=== PATIENT | male | born 1960 | race Caucasian/White ===

== ENCOUNTER 2017-03-20 12:46 | Emergency (ER) | payer MEDICAID ==
[~2017-03-20] VITALS: Wt 86.0 kg
[~2017-03-20 12:46] MED LIST: ADV25050 INHALATION; ALBU8.5H3 INH; PRED20TA PO
[2017-03-20] MEDS ORDERED: IPRATROPIUM (NEB) 0.5 MG/2.5 ML AMP INH STA (13:24)
[2017-03-20] MEDS ORDERED: METHYLPREDNISOLONE 125 MG INJ IV STA (13:24)
[2017-03-20] MEDS ORDERED: ALBUTEROL 0.083% (NEB) 2.5 MG/3 ML AMP INH STA (13:24)
--- NOTE | 2017-03-20 13:48 | ERD ---
ER Documentation Chief Complaint Chief Complaint ON AND OFF SOB, SMOKER, NO PAIN REPORTED HPI This is a 56-year-old male with no past medical history that presents to the emergency department complaining of intermittent shortness of breath over the past year the patient indicates that he smokes tobacco on a daily basis and has smoked for over 40 years. He has been diagnosed with bronchitis in the past and attempted to use an inhaler prior to arrival but stated the inhaler had . The patient states his reasoning for coming to the emergency department today as the difficulty breathing progressively worsened this morning after he smoked heroin. He denies any chest pain or pressure that radiates to the neck arm back or jaw. He denies any recent travel or prolonged immobilization. He denies any swelling of his lower extremities. He states the shortness of breath is more prominent on exertion and he denies any shortness of breath at rest and no paroxysmal nocturnal dyspnea or orthopnea. The patient also indicates he has very poor oral dentition and complains of pain over the right lower molar that has been present for several months. He is scheduled to see a dentist but is requesting a prescription for antibiotics. He denies any difficulty in swallowing. He has had no fevers or shaking or chills. He states that the pain over the tooth is exacerbated whenever he eats hot or cold substances ROS All systems reviewed and are negative except as per history of present illness. Medications Home Meds Active Scripts Amoxicillin* (Amoxicillin*) 500 Mg Cap, 500 MG PO BID for 7 Days, CAP Prov:LUCIO MASSEY 03/20/17 Prednisone* (Prednisone*) 20 Mg Tab, 40 MG PO DAILY for 7 Days, TAB Take 40mg dailyx3 days take 20mg dailyx3 datys take 10mg dailyx3 days STOP Prov:MARGARITA JO V. PUBLIC AFFAIRS MANAGER 09/03/15 Salmeterol Xinaf/Fluticasone* (Advair*) 250-50 Diskus Inhaler, 1 INH INHALATION BID, #1 INHALER Prov:MARGARITA JO V. PUBLIC AFFAIRS MANAGER 09/03/15 Albuterol Sulfate* (Proair HFA*) 8.5 Gm Hfa.aer.ad, 2 PUFF INH Q4 for shortness of breath, #1 INHALER Prov:MARGARITA JO V. PUBLIC AFFAIRS MANAGER 09/03/15 Allergies Allergies: Coded Allergies: No Known Allergy (Unverified , 09/01/15) PMhx/Soc History of Surgery: Yes (RIGHT CAROTID ENDARTERECTOMY, HEART CATH) Anesthesia Reaction: No Hx Neurological Disorder: No Hx Respiratory Disorders: Yes (COPD) Hx Cardiac Disorders: Yes (CAD, CHF, HTN, MITRAL VALVE REGURGITATION) Hx Psychiatric Problems: No Hx Miscellaneous Medical Probl: No Hx Alcohol Use: Yes Hx Substance Use: No Hx Tobacco Use: Yes Physical Exam Vitals Vital Signs Date Time Temp Pulse Resp B/P Pulse Ox O2 Delivery O2 Flow Rate FiO2 03/20/17 13:59 98 19 94 21 03/20/17 12:48 97.7 98 19 128/73 94 Physical Exam Constitutional:Well-developed. Well-nourished. HEENT:Normocephalic. Atraumatic.Pupils were equal round reactive to light. Moist mucous membranes.No tonsillar exudates. Very poor oral dentition with gingival mucosa and swelling over the right lower molar region and tenderness with percussion of the lower right molars. No avulsions or fractures of the teeth. Neck: No nuchal rigidity. No lymphadenopathy. No posterior cervical spine tenderness or step-offs. Respiratory: Not using accessory muscles of respiration.Lungs were clear to auscultation bilaterally. No rhonchi. No rales. There is wheezing on end auscultation bilaterally. Cardiovascular: Regular rate regular rhythm.No murmurs. No rubs were appreciated.S1, S2 normal. Distal pulses are palpable 2+ bilaterally. Muscle skeletal: Full range of motion of both the upper and lower extremities bilaterally.Normal muscle tone.No assymetrical calf tenderness or swelling. Skin: No petechia, no purpura. No lesions on the palms or the soles of the feet. No maculopapular rash. NEURO: Patient was alert, awake, orientated x3.No facial droop. Gait observed and normal with no ataxia.Speech had regular rate and rhythm. No focal neurological deficits. Result Diagram: 03/20/17 1351 03/20/17 1351 Results 24 hrs Laboratory Tests Test 03/20/17 13:51 White Blood Count 8.710^3/ul Red Blood Count 5.1810^6/ul Hemoglobin 15.1g/dl Hematocrit 46.2% Mean Corpuscular Volume 89.2fl Mean Corpuscular Hemoglobin 29.2pg Mean Corpuscular Hemoglobin Concent 32.7g/dl Red Cell Distribution Width 13.0% Platelet Count 51836^3/UL Mean Platelet Volume 9.9fl Neutrophils % 58.1% Lymphocytes % 30.7% Monocytes % 9.7% Eosinophils % 1.1% Basophils % 0.2% Nucleated Red Blood Cells % 0.0/100WBC Neutrophils # 5.110^3/ul Lymphocytes # 2.710^3/ul Monocytes # 0.910^3/ul Eosinophils # 0.110^3/ul Basophils # 0.010^3/ul Nucleated Red Blood Cells # 0.010^3/ul Sodium Level 140mmol/L Potassium Level 4.7mmol/L Chloride Level 100mmol/L Carbon Dioxide Level 33mmol/L Anion Gap 12 Blood Urea Nitrogen 14mg/dl Creatinine 0.78mg/dl Glucose Level 117mg/dl Calcium Level 9.4mg/dl Total Bilirubin 0.4mg/dl Direct Bilirubin 0.00mg/dl Indirect Bilirubin 0.4mg/dl Aspartate Amino Transf (AST/SGOT) 34IU/L Alanine Aminotransferase (ALT/SGPT) 56IU/L Alkaline Phosphatase 61IU/L Creatine Kinase 62IU/L Creatine Kinase Index 2.3 Creatinine Kinase MB (Mass) 1.42ng/ml Troponin I < 0.012ng/ml B-Type Natriuretic Peptide 1900PG/ML Total Protein 7.3g/dl Albumin 4.1g/dl Globulin 3.20g/dl Albumin/Globulin Ratio 1.28 Current Medications Medications (Trade) Dose Ordered Sig/Priya Route PRN Reason Start Time Stop Time Status Last Admin Dose Admin Albuterol (Proventil 0.083% (Neb)) 5 mg ONCE STAT INH 03/20/17 13:24 03/20/17 13:27 DC 03/20/17 13:57 Ipratropium [place] (Atrovent 0.02% (Neb)) 0.5 mg ONCE STAT INH 03/20/17 13:24 03/20/17 13:27 DC 03/20/17 13:57 Methylprednisolone Sodium Succinate (Solu-Medrol) 125 mg ONCE STAT IV 03/20/17 13:24 03/20/17 13:27 DC 03/20/17 13:59 Albuterol (Proventil 0.083% (Neb)) 5 mg ONCE STAT NEB 03/20/17 16:38 03/20/17 16:48 DC Ipratropium [place] (Atrovent 0.02% (Neb)) 0.5 mg ONCE STAT NEB 03/20/17 16:38 03/20/17 16:48 DC Procedures/MDM The patient presented to the emergency department with shortness of breath. My differential diagnosis included but was not limited to upper airway obstruction , CHF, pulmonary embolism, cardiac ischemia, pneumonia, pneumothorax, anemia, drug overdose, pulmonary edema, COPD or asthma. One view chest radiograph ordered reviewed by myself showed no cardiomegaly no infiltrates no pneumothorax. I did feel the patient's symptoms could be a result of emphysema versus bronchitis. The patient received nebulizer treatments of albuterol Atrovent and was given 125 mg of Solu-Medrol in the emergency department. The patient had no risk factors for pulmonary embolism therefore did not obtain a CT scan of the patient's chest. She had no leukocytosis. There is no evidence of atypical myocardial ischemia. The patient has not an elevated BNP with no signs of pulmonary vascular congestion on chest radiograph. The patient felt comfortable being discharged home will follow up on an outpatient basis with a kiss mixer. I did treat the patient for acute bronchitis and he was also given a prescription of amoxicillin for suspected dental abscess. The patient was discharged home in fair condition. They were instructed to return to the emergency department at any time if there was any worsening of their condition. The patient stated they would follow up with their PCP in the next 24-48 hours to initiate a suitable medication regimen under the care of their PCP as well as to allow their PCP to monitor any drug reactions. The patient was discharged home with prescriptions after they gave informed consent to the new medication. They were also fully informed by myself on the adverse effects and adverse drug interactions in order to provide adequate safeguards to prevent possible adverse reactions to medications. Departure Diagnosis: Primary Impression: Bronchitis Additional Impression: Dental abscess Condition: Fair SHILPARICH KNAPPA Mar 20, 2017 13:46
--- NOTE | 2017-03-20 13:52 | RADRPT ---
PROCEDURE: XR Chest. CLINICAL INDICATION: Shortness of breath TECHNIQUE: Single frontal radiograph of the chest. COMPARISON: CR CHEST 09/01/2015; CR CHEST 10/12/2014; CR CHEST 08/24/2013 FINDINGS: Minimal chronic opacity in the left lung base likely representing chronic atelectasis. No new acute appearing air space infiltrates. No pleural effusion. No pneumothorax. The cardiomediastinal silhouette is unremarkable. No acute osseous abnormalities. IMPRESSION: Minimal chronic opacity in the left lung base likely representing chronic atelectasis. No new acute appearing air space infiltrates. RPTAT: AADD .Crow Gil MD, MD Date Time Electronically viewed and signed by .Crow Gil MD, MD on 03/20/2017 13:52 .B/
[2017-03-20 14:08] LABS: BASOPHILS % 0.2 % (0.0-2.0); EOSINOPHILS # 0.1 10^3/ul (0.0-0.5); EOSINOPHILS % 1.1 % (0.0-7.0); HEMATOCRIT 46.2 % (42.0-52.0); HEMOGLOBIN 15.1 g/dl (14.0-18.0); LYMPHOCYTES # 2.7 10^3/ul (0.8-2.9); LYMPHOCYTES % 30.7 % (15.0-51.0); MEAN CORPUSCULAR HEMOGLOBIN 29.2 pg (29.0-33.0); MEAN CORPUSCULAR HGB CONC 32.7 g/dl (32.0-37.0); MEAN CORPUSCULAR VOLUME 89.2 fl (82.0-101.0); MEAN PLATELET VOLUME 9.9 fl (7.4-10.4); MONOCYTE # 0.9 10^3/ul (0.3-0.9); MONOCYTES % 9.7 % (0.0-11.0); NEUTROPHIL # 5.1 10^3/ul (1.6-7.5); NEUTROPHILS % 58.1 % (39.0-77.0); PLATELET COUNT 174 10^3/UL (140-415); RED BLOOD COUNT 5.18 10^6/ul (4.70-6.10); WHITE BLOOD COUNT 8.7 10^3/ul (4.8-10.8)
[2017-03-20 14:28] LABS: ALANINE AMINOTRANSFERASE 56 IU/L (13-69); ALBUMIN 4.1 g/dl (3.3-4.9); ALBUMIN/GLOBULIN RATIO 1.28; ALKALINE PHOSPHATASE 61 IU/L (42-121); ANION GAP 12 (8-16); ASPARTATE AMINO TRANSFERASE 34 IU/L (15-46); BILIRUBIN,INDIRECT 0.4 mg/dl (0-1.1); BILIRUBIN,TOTAL 0.4 mg/dl (0.2-1.3); BLOOD UREA NITROGEN 14 mg/dl (7-20); CALCIUM 9.4 mg/dl (8.4-10.2); CARBON DIOXIDE 33 mmol/L (21-31); CHLORIDE 100 mmol/L (97-110); CREATINE KINASE 62 IU/L (23-200); CREATININE 0.78 mg/dl (0.61-1.24); GLUCOSE 117 mg/dl (70-220); POTASSIUM 4.7 mmol/L (3.5-5.1); SODIUM 140 mmol/L (135-144); TOTAL PROTEIN 7.3 g/dl (6.1-8.1)
[2017-03-20 14:41] LABS: B-TYPE NATRIURETIC PEPTIDE 1900 PG/ML (0-125)
[2017-03-20 14:45] LABS: CK-MB 1.42 ng/ml (0.0-2.4); TROPONIN-I < 0.012 ng/ml (0.00-0.12)
[2017-03-20] MEDS ORDERED: ALBUTEROL 0.083% (NEB) 2.5 MG/3 ML AMP NEB STA (16:38)
[2017-03-20] MEDS ORDERED: IPRATROPIUM (NEB) 0.5 MG/2.5 ML AMP NEB STA (16:38)
[2017-03-20] MEDS ORDERED: AMOX500C2 PO (16:53)
[2017-03-20] MEDS ORDERED: PRED20TA PO (17:22)
[2017-03-20] MEDS ORDERED: ALBU8.5H3 INH (17:22)
== END 2017-03-20 17:40 | disposition home or self-care (01) ==
LOC: FTE 12:46
DX: J20.9 Acute bronchitis, unspecified (principal); K04.7 Periapical abscess without sinus; J44.9 Chronic obstructive pulmonary disease, unspecified; I25.10 Atherosclerotic heart disease of native coronary artery without angina pectoris; I50.9 Heart failure, unspecified; I10 Essential (primary) hypertension; Z87.891 Personal history of nicotine dependence
CPT/HCPCS: 71010; 80053; 82550; 82553; 83880; 84484; 85025; 93005; 94640; 94664; 96374; J2930; Z7502; Z7610

== ENCOUNTER 2017-04-23 00:50 | Emergency (ER) | END 2017-04-23 03:53 | disposition home or self-care (01) ==

== ENCOUNTER 2017-05-11 05:38 | Emergency (ER) | END 2017-05-11 10:06 | disposition left against medical advice (07) ==

== ENCOUNTER 2017-07-05 17:07 | Emergency (ER) | END 2017-07-05 22:10 | disposition home or self-care (01) ==

== ENCOUNTER 2017-12-23 09:42 | Emergency (ER) | END 2017-12-23 10:44 | disposition home or self-care (01) ==

== ENCOUNTER → 2018-10-02 | Outpatient (CLI) | payer OTHER ==
[~2018-10-02] MED LIST changes: -ADV25050 INHALATION; -ALBU8.5H3 INH; +ALBU8.5H8 INH; +AMOX1TAB10 PO; +BEN25 PO; +CARV3.1260 PO; +CEPH500C PO; +CPR3OO3.5 LEFT EYE; +FURO-110 PO; +HYDR25TA6 PO; +LISI-471 PO; +SPIR25TA PO; +SULF1TAB31 PO
== END | disposition home or self-care (01) ==
LOC: PUL 09:19
PROVIDERS: ATTEND Internal Medicine Pulmonary Disease
DX: R06.02 Shortness of breath (principal)
CPT/HCPCS: 36600; 82803

== ENCOUNTER 2018-10-12 09:32 | Emergency (ER) | payer OTHER ==
[~2018-10-12] VITALS: Ht 162.6 cm; Wt 84.8 kg
[2018-10-12 09:36] VITALS: BP 138/84; PULSE 94; RESP 14; Ht 162.6 cm; Wt 84.8 kg
--- NOTE | 2018-10-12 10:26 | ERD ---
ER Documentation Chief Complaint Chief Complaint PT with L eye swelling X 3 days. HPI Patient is a 58-year-old male with past medical history of COPD, who presents to the ER for concerns of left eye swelling x3 days. Patient states initially is upper eyelid was only swollen however he is noticed that his lower eyelid is now swelling as well. Patient states it was itchy yesterday however he has no itching today. Patient reports pain only when touching the affected area. Patient has no fevers or chills. Patient states he was outside and is not sure if he was bit by an unknown insect. Patient denies any blurry vision, pain with eye movement, tearing, discharge or bleeding. ROS All systems reviewed and are negative except as per history of present illness. Medications Home Meds Active Scripts Diphenhydramine Hcl* (Benadryl*) 25 Mg Cap, 25 MG PO Q6, #30 CAP Prov:LILLY WHITE PA-C 10/12/18 Amoxicillin/Potassium Clav (Amox-Clav 875-125 mg Tablet) 875-125 mg Tab, 1 TAB PO BID for 10 Days, #20 TAB Prov:LILLY WHITE PA-C 10/12/18 Sulfamethoxazole/Trimethoprim* (Bactrim Ds* Tablet) 1 Each Tablet, 1 TAB PO BID, #10 TAB Prov:LILLY WHITE PA-C 10/12/18 Cephalexin* (Cephalexin*) 500 Mg Capsule, 500 MG PO Q6 for 7 Days, #28 CAP Prov:BRIAN ROONEY MD 12/23/17 Ciprofloxacin Opht* (Ciloxan*) 0.3%-3.5 Opht Oint, 1 APPLIC LEFT EYE TID for 7 Days, EA Prov:BRIAN ROONEY MD 12/23/17 Prednisone* (Prednisone*) 20 Mg Tab, 40 MG PO DAILY for 4 Days, TAB Prov:TAMIKO SANCHEZ MD 07/05/17 Albuterol Sulfate* (Proair HFA*) 8.5 Gm Hfa.aer.ad, 2 PUFF INH Q4 for WHEEZING, #1 INHALER Prov:TAMIKO SANCHEZ MD 07/05/17 Furosemide* (Lasix*) 20 Mg Tablet, 20 MG PO DAILY for 7 Days, #7 TAB Prov:TAMIKO SANCHEZ MD 07/05/17 Reported Medications Spironolactone* (Aldactone*) 25 Mg Tablet, 25 MG PO DAILY, #30 TAB 07/05/17 Carvedilol* (Carvedilol*) 3.125 Mg Tablet, 3.125 MG PO BID, #60 TAB 07/05/17 Hydrochlorothiazide* (Hydrochlorothiazide*) 25 Mg Tab, 25 MG PO DAILY, #30 TAB 07/05/17 Lisinopril* (Lisinopril*) 20 Mg Tablet, 20 MG PO DAILY, #30 TAB 07/05/17 Allergies Allergies: Coded Allergies: No Known Allergy (Unverified , 07/05/17) PMhx/Soc History of Surgery: No Anesthesia Reaction: No Hx Neurological Disorder: No Hx Respiratory Disorders: Yes (copd) Hx Cardiac Disorders: Yes (chf) Hx Psychiatric Problems: No Hx Miscellaneous Medical Probl: No Hx Alcohol Use: No Hx Substance Use: No Hx Tobacco Use: No FmHx Family History: No diabetes Physical Exam Vitals Vital Signs Date Temp Pulse Resp B/P (MAP) Pulse Ox O2 O2 Flow FiO2 Time Delivery Rate 10/12/18 98.8 94 14 138/84 95 09:36 (102) Physical Exam GENERAL: Well-developed, well-nourished male. Appears in no acute distress. Speaking in full sentences. HEAD: Normocephalic, atraumatic. EYES: Pupils are equally reactive bilaterally. EOMs grossly intact. No conjunctival erythema. Left upper and lower eyelids are swollen and slightly erythematous. Upper eyelid is tender to touch. No warmth. No fluctuance or induration. Patient has no proptosis. Patient has no pain with EOMs. NECK: Supple. No meningismus. Normal range of motion of the neck. LUNG: Clear to auscultation bilaterally. No rhonchi, wheezing, rales or coarse breath sounds. HEART: Regular rate and rhythm. No murmurs, rubs or gallops. EXTREMITIES: Equal pulses bilaterally. No peripheral clubbing, cyanosis or edema. No unilateral leg swelling. NEUROLOGIC: Alert and oriented. Moving all four extremities without any difficulty. Normal speech. Steady gait. SKIN: Normal color. Warm and dry. No rashes or lesions. Procedures/MDM MEDICAL DECISION MAKING: This is a 58-year-old male presents the ER for concerns of left eyelid swelling for the last 3 days. Patient denies any fevers or visual changes. Vital signs were reviewed. Patient was afebrile. On exam, patient noted to have bilateral eyelid swelling. Patient had no proptosis. Patient had no pain with EOMs. Explained to the patient that his symptoms are likely related to periorbital cellulitis however unable to definitively rule out orbital cellulitis without CT imaging. Patient declined CT imaging today. Patient states he preferred to trial p.o. antibiotics and see if his symptoms improve. Patient was advised to return in 2 days for recheck. Strict return precautions advised. Low suspicion for abscess, deep space infection, glaucoma, sinusitis, meningitis, osteomyelitis. Patient was nontoxic, [id number] prior to discharge. PRESCRIPTIONS: Bactrim, Augmentin DISCHARGE: At this time, patient is stable for discharge and outpatient management. Supportive measures were discussed with patient including warm/cool compresses. Patient advised not to wear contact lenses or eye makeup. I have instructed the patient to follow-up with his/her primary care physician in 1-2 days. I have discussed with the patient the possibility of needing to see an hearing aid specialist for further workup if symptoms persist. I have instructed the patient to promptly return to the ER for any new or worsening symptoms including increased pain, fever, swelling, redness, warmth, nausea, vomiting, . The patient and/or family expressed understanding of and agreement with this plan. All questions were answered. Home care instructions were provided. Disclaimer: Inadvertent spelling and grammatical errors are likely due to EHR/dictation software use and do not reflect on the overall quality of patient care. Also, please note that the electronic time recorded on this note does not necessarily reflect the actual time of the patient encounter. Departure Diagnosis: Primary Impression: Periorbital cellulitis Laterality: left Qualified Codes: L03.213 - Periorbital cellulitis Condition: Fair Patient Instructions: Nan-Orbital Cellulitis Referrals: COMMUNITY CLINICS YOU HAVE RECEIVED A MEDICAL SCREENING EXAM AND THE RESULTS INDICATE THAT YOU DO NOT HAVE A CONDITION THAT REQUIRES URGENT TREATMENT IN THE EMERGENCY DEPARTMENT. FURTHER EVALUATION AND TREATMENT OF YOUR CONDITION CAN WAIT UNTIL YOU ARE SEEN IN YOUR DOCTORS OFFICE WITHIN THE NEXT 1-2 DAYS. IT IS YOUR RESPONSIBILITY TO MAKE AN APPOINTMENT FOR FOLOW-UP CARE. IF YOU HAVE A PRIMARY DOCTOR --you should call your primary doctor and schedule an appointment IF YOU DO NOT HAVE A PRIMARY DOCTOR YOU CAN CALL OUR PHYSICIAN REFERRAL HOTLINE AT IF YOU CAN NOT AFFORD TO SEE A PHYSICIAN YOU CAN CHOSE FROM THE FOLLOWING [facility] [address] [facility] [address] [facility] [address] [facility] [address] [facility] [address] [facility] [facility] [address] [facility]. [facility] YOU HAVE RECEIVED A MEDICAL SCREENING EXAM AND THE RESULTS INDICATE THAT YOU DO NOT HAVE A CONDITION THAT REQUIRES URGENT TREATMENT IN THE EMERGENCY DEPARTMENT. FURTHER EVALUATION AND TREATMENT OF YOUR CONDITION CAN WAIT UNTIL YOU ARE SEEN IN YOUR DOCTORS OFFICE WITHIN THE NEXT 1-2 DAYS. IT IS YOUR RESPONSIBILITY TO MAKE AN APPOINTMENT FOR FOLOW-UP CARE. IF YOU HAVE A PRIMARY DOCTOR --you should call your primary doctor and schedule and appointment IF YOU DO NOT HAVE A PRIMARY DOCTOR YOU CAN CALL OUR PHYSICIAN REFERRAL HOTLINE AT . IF YOU CAN NOT AFFORD TO SEE A PHYSICIAN YOU CAN CHOSE FROM THE FOLLOWING [facility]: [facility] [address] [place] [address] [facility] [address] [place] [address] [facility] [address] [place] [address] Additional Instructions: Monitor your symptoms closely. If develop any fevers, worsening swelling, pain, redness, return to the ER immediately. Recheck advised in 2 days. Call your primary care doctor TOMORROW for an appointment during the next 1-2 days.See the doctor sooner or return here if your condition worsens before your appointment time. LILLY WHITE PA-C Oct 12, 2018 10:26
== END 2018-10-12 12:17 | disposition home or self-care (01) ==
LOC: FTE 09:32
DX: L03.213 Periorbital cellulitis (principal); J44.9 Chronic obstructive pulmonary disease, unspecified; I50.9 Heart failure, unspecified
CPT/HCPCS: 99283